=== PATIENT | female | born 1995 | race Caucasian/White ===

== ENCOUNTER 2023-06-01 19:50 | Emergency (ER) | payer BC, MEDICAID ==
[~2023-06-01] VITALS: Ht 157.5 cm; Wt 70.5 kg
[2023-06-02] MEDS ORDERED: BACT800T5 PO (01:30)
[2023-06-02 02:16] VITALS: BP 118/64; TEMP 98.1; O2SAT 99
== END 2023-06-02 02:17 | disposition home or self-care (01) ==
LOC: M ED 19:50
DX: L66.2 Folliculitis decalvans (principal); Z79.2 Long term (current) use of antibiotics